=== PATIENT | female | born 1945 | race Caucasian/White ===

== ENCOUNTER 2016-06-27 11:39 | Emergency (ER) | payer MEDICARE ==
[~2016-06-27] VITALS: Ht 162.6 cm; Wt 72.0 kg
[~2016-06-27 11:39] MED LIST: ASPI81 PO; ENAL20TA PO; EXEM25TA PO; HYDR-2768 PO; LEVO50TA51 PO; OYST500T77 PO; TAB-TAB PO
[2016-06-27 11:42] VITALS: BP 221/92; PULSE 92; RESP 24; TEMP 97.5; O2SAT 97
[2016-06-27] MEDS ORDERED: SODIUM CHLOR 0.9% 1000 ML INJ 1,000 ML IV SCH (12:03)
[2016-06-27 12:09] VITALS: O2SAT 98
[2016-06-27] MEDS ORDERED: FAMOTIDINE 20 MG/2 ML VIAL IV PUSH ONE (12:15)
[2016-06-27] MEDS ORDERED: ONDANSETRON HCL 4 MG/2 ML VIAL IVP ONE (12:15)
[2016-06-27] MEDS ORDERED: DICYCLOMINE HCL 20 MG/2 ML VIAL IM ONE (12:15)
[2016-06-27] MEDS ORDERED: PANTOPRAZOLE SODIUM 40 MG VIAL IVP ONE (12:15)
--- NOTE | 2016-06-27 12:41 | PD ---
HPI Chief Complaint: Abdominal Pain Time Seen by Provider: 12:38 Travel History International Travel<30 days: No Contact w/Intl Traveler<30days: No Traveled to known affect area: No History of Present Illness HPI 70-year-old female that presents to the ED for evaluation of severe epigastric pain. Patient states that she had an episode around 6:00 this morning which woke her up from her sleep. Per patient he was severe causing nausea and some diarrhea. Per patient the pain is missed on the epigastric area. Per patient the pain is 8 out of 10. The patient his symptoms go away after she took some medications that she made herself burp. She denies ever having any surgeries to the abdomen. Per patient she felt somewhat better after an hour and she was able to go to eat breakfast when no issues. Per patient she went to work with no issues and then during work she developed the pain again. Per patient this time the pain seems to be more severe and now it's almost 10 out of 10. She states that it radiates to the back. She denies any lower abdominal pain. She denies any vaginal discharge. She states that she has liquidy stool but no blood. She denies taking any blood thinners. Denies any chest pain or shortness of breath. 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) Glaucoma: No Hepatitis: No Hiatal Hernia: No Hypertension: Yes Respiratory: No Thyroid Disease: Yes (HYPOTHYROIDISM) Tetanus Vaccination: > 5 Years Influenza Vaccination: Yes Menopausal: Yes : 2 Para: 2 Past Surgical History Abdominal Surgery: No Body Medical Devices: BREAST IMPLANTS Cardiac Surgery: No Ear Surgery: No Endocrine Surgery: No Eye Surgery: No Genitourinary Surgery: No Gynecologic Surgery: No Oral Surgery: Yes (BIOPSY ON PRE CANCEROUS LESION ON TONGUE) Pacemaker: No Thoracic Surgery: Yes (MASTECTOMY RIGHT BREAST, MAMMOPLASTY) Other Surgery: Yes (BREAST IMPLANTS 1996) Social History Alcohol Use: No Tobacco Use: No Substance Use: No Allergies-Medications (Allergen,Severity, Reaction): Coded Allergies: Penicillin (Verified Allergy, Mild, 03/17/13) Codeine (Verified Adverse Reaction, Severe, NAUSEA/VOMITING, 03/17/13) Morphine (Verified Adverse Reaction, Severe, NAUSEA,VOMITING, 03/17/13) Oxycontin (Verified Adverse Reaction, Severe, NAUSEA/VOMITING, 03/17/13) Reported Meds & Prescriptions Reported Meds & Active Scripts Active Reported Exemestane 25 Mg Tab 25 Mg PO DAILY Levoxyl (Levothyroxine Sodium) 50 Mcg Tab 50 Mcg PO DAILY Enalapril Maleate 20 Mg Tab 20 Mg PO DAILY Multivitamin (Multivitamins) 1 Tab Tab 1 Tab PO DAILY Calcium 500 Mg Tab 500 Mg PO BID Aspirin 81 Mg Tab 81 Mg PO DAILY Hctz (Hydrochlorothiazide) 25 Mg Tab 25 Mg PO DAILY Review of Systems Except as stated in HPI: all other systems reviewed are Neg Physical Exam Narrative GENERAL: SKIN: Warm and dry. HEAD: Atraumatic. Normocephalic. EYES: Pupils equal and round. No scleral icterus. No injection or drainage. ENT: No nasal bleeding or discharge. Mucous membranes pink and moist. NECK: Trachea midline. No JVD. CARDIOVASCULAR: Regular rate and rhythm. RESPIRATORY: No accessory muscle use. Clear to auscultation. Breath sounds equal bilaterally. GASTROINTESTINAL: Abdomen soft, patient has reproducible pain on the epigastric area with deep palpation, nondistended. Hepatic and splenic margins not palpable. MUSCULOSKELETAL: Extremities without clubbing, cyanosis, or edema. No obvious deformities. Full range of motion of the upper and lower extremities bilaterally. 2+ pulses bilaterally. NEUROLOGICAL: Awake and alert. No obvious cranial nerve deficits. Motor grossly within normal limits. Five out of 5 muscle strength in the arms and legs. Normal speech. PSYCHIATRIC: Appropriate mood and affect; insight and judgment normal. Data Data Last Documented VS Vital Signs Date Time Temp Pulse Resp B/P Pulse Ox O2 Delivery O2 Flow Rate FiO2 06/27/16 12:09 98 Room Air 06/27/16 12:09 18 06/27/16 11:42 97.5 92 221/92 Orders Complete Blood Count With Diff (06/27/16 12:03) Comprehensive Metabolic Panel (06/27/16 12:03) Lipase (06/27/16 12:03) Lactic Acid (06/27/16 12:03) Prothrombin Time / Inr (Pt) (06/27/16 12:03) Act Partial Throm Time (Ptt) (06/27/16 12:03) Urinalysis - C+S If Indicated (06/27/16 12:03) Ct Abd/Pel W Iv Contrast(Rout) (06/27/16 12:03) Iv Access Insert/Monitor (06/27/16 12:03) Ecg Monitoring (06/27/16 12:03) Oximetry (06/27/16 12:03) NPO (06/27/16 12:03) Ondansetron Inj (Zofran Inj) (06/27/16 12:15) Pantoprazole Inj (Protonix Inj) (06/27/16 12:15) Sodium Chlor 0.9% 1000 Ml Inj (Ns 1000 M (06/27/16 12:03) Electrocardiogram (06/27/16 12:03) Famotidine Inj (Pepcid Inj) (06/27/16 12:15) Dicyclomine Inj (Bentyl Inj) (06/27/16 12:15) Troponin I (06/27/16 12:20) Iohexol 350 Inj (Omnipaque 350 Inj) (06/27/16 14:16) Labs Laboratory Tests Test 06/27/16 12:20 White Blood Count 7.1 TH/MM3 Red Blood Count 4.97 MIL/MM3 Hemoglobin 14.3 GM/DL Hematocrit 42.9 % Mean Corpuscular Volume 86.3 FL Mean Corpuscular Hemoglobin 28.7 PG Mean Corpuscular Hemoglobin 33.3 % Concent Red Cell Distribution Width 14.2 % Platelet Count 240 TH/MM3 Mean Platelet Volume 9.3 FL Neutrophils (%) (Auto) 72.3 % Lymphocytes (%) (Auto) 20.3 % Monocytes (%) (Auto) 6.6 % Eosinophils (%) (Auto) 0.4 % Basophils (%) (Auto) 0.4 % Neutrophils # (Auto) 5.2 TH/MM3 Lymphocytes # (Auto) 1.4 TH/MM3 Monocytes # (Auto) 0.5 TH/MM3 Eosinophils # (Auto) 0.0 TH/MM3 Basophils # (Auto) 0.0 TH/MM3 CBC Comment DIFF FINAL Differential Comment Prothrombin Time 11.2 SEC Prothromb Time International 1.0 RATIO Ratio Activated Partial 24.2 SEC Thromboplast Time Urine Color YELLOW Urine Turbidity CLEAR Urine pH 5.5 Urine Specific [place] 1.017 Urine Protein TRACE mg/dL Urine Glucose (UA) NEG mg/dL Urine Ketones NEG mg/dL Urine Occult Blood TRACE Urine Nitrite NEG Urine Bilirubin NEG Urine Urobilinogen LESS THAN 2.0 MG/DL Urine Leukocyte Esterase TRACE Urine RBC 3 /hpf Urine WBC 1 /hpf Urine Squamous Epithelial <1 /hpf Cells Urine Mucus FEW /lpf Microscopic Urinalysis Comment CULT NOT INDICATED Sodium Level 140 MEQ/L Potassium Level 4.2 MEQ/L Chloride Level 103 MEQ/L Carbon Dioxide Level 27.3 MEQ/L Anion Gap 10 MEQ/L Blood Urea Nitrogen 15 MG/DL Creatinine 0.93 MG/DL Estimat Glomerular Filtration 59 ML/MIN Rate Random Glucose 102 MG/DL Lactic Acid Level 1.8 mmol/L Calcium Level 9.2 MG/DL Total Bilirubin 0.8 MG/DL Aspartate Amino Transf 57 U/L (AST/SGOT) Alanine Aminotransferase 41 U/L (ALT/SGPT) Alkaline Phosphatase 67 U/L Troponin I LESS THAN 0.02 NG/ML Total Protein 7.7 GM/DL Albumin 3.9 GM/DL Lipase 111 U/L [place] Medical Decision Making Medical Screen Exam Complete: Yes Emergency Medical Condition: Yes Medical Record Reviewed: Yes Interpretation(s) CBC & BMP Diagram 06/27/16 12:20 Last Impressions Abdomen/Pelvis CT 06/27/16 1203 Signed Impressions: Service Date/Time: June 14:13 - CONCLUSION: 1. Nonspecific mild gastric antral wall thickening. 2. Colonic diverticula but no evidence of acute diverticulitis. 3. No other acute findings in the abdomen or pelvis. Orlando Carlos MD LFTs and Lipase WNl UA negative Differential Diagnosis Chest pain versus ACS versus obstruction versus cholecystitis versus cholelithiasis versus gastritis versus gastroenteritis versus perforation versus PUD versus pancreatitis Narrative Course 70-year-old female that presents to the ED for evaluation of epigastric abdominal pain. Patient was properly examined and was found to have signs and symptoms consistent appears to be epigastric abdominal pain. Labs and imaging ordered. Patient was given IV fluids and medications. Patient specifically requests no narcotics because they make her feel "funny". He was given Bentyl and Zofran as well as IV fluids and Protonix and Pepcid. Labs and imaging were essentially unremarkable. From history and physical this appears to be bad gastritis. Patient was reassured. Patient did have some relief from her symptoms. Patient was given prescription for Protonix and Zantac to use as needed. Close follow-up with PCP. See ED worsening symptoms. My attending Dr. Coelho evaluated the patient with me and agrees with plan. Patient was made aware of all findings. She understands reasons to come back. Diagnosis Primary Impression: Gastritis Qualified Code: K29.00 - Acute gastritis without hemorrhage, unspecified gastritis type Patient Instructions: General Instructions Additional Instructions: Take medications as prescribed. Follow with PCP. Liquid diet until better. See ED for worsening symptoms. Med/Other Pt SpecificInfo: Prescription(s) given Disposition: DISCHARGE HOME Condition: Stable Tod Moss Jun 27, 2016 12:41
[2016-06-27 12:57] LABS: AUTOMATED NEUTROPHIL # 5.2 TH/MM3 (1.8-7.7); BASOPHIL % 0.4 % (0.0-2.0); EOSINOPHIL % 0.4 % (0.0-4.0); HEMATOCRIT 42.9 % (35.0-46.0); HEMO FLAGS DIFF FINAL; LYMPH % 20.3 % (9.0-44.0); LYMPHOCYTE # 1.4 TH/MM3 (1.0-4.8); MEAN CELL VOLUME 86.3 FL (80.0-100.0); MEAN CORPUSCULAR HEMOGLOBIN 28.7 PG (27.0-34.0); MEAN CORPUSCULAR HGB CONC 33.3 % (32.0-36.0); MONO % 6.6 % (0.0-8.0); NEUT % 72.3 % (16.0-70.0); PLATELET COUNT 240 TH/MM3 (150-450); RED BLOOD COUNT 4.97 MIL/MM3 (4.00-5.30); RED CELL DISTRIBUTION WIDTH 14.2 % (11.6-17.2); WHITE BLOOD COUNT 7.1 TH/MM3 (4.0-11.0)
[2016-06-27 13:00] LABS: BLOOD, URINE TRACE (NEG); GLUCOSE,URINE NEG (NEG); KETONE, URINE NEG (NEG); MUCUS URINE FEW /lpf (OCC); NITRITE,URINE NEG (NEG); PH, URINE 5.5 (5.0-8.5); SQUAMOUS EPITHELIAL CELL URINE <1 /hpf (0-5); URINE COLOR YELLOW (YELLW/STRAW)
[2016-06-27 13:01] LABS: COMMENT (UR) CULT NOT INDICATED; CULTURE IF INDICATED CULT NOT INDICATED
[2016-06-27 13:06] LABS: ANION GAP 10 MEQ/L (5-15); AST (GOT) 57 U/L (15-37); BICARBONATE 27.3 MEQ/L (21.0-32.0); BLOOD UREA NITROGEN 15 MG/DL (7-18); CHLORIDE 103 MEQ/L (98-107); GLOMERULAR FILTRATION RATE 59 ML/MIN (>89); POTASSIUM 4.2 MEQ/L (3.5-5.1); SODIUM (NA) 140 MEQ/L (136-145)
[2016-06-27 13:08] LABS: APTT (PATIENT) 24.2 SEC (24.3-30.1); PROTHROMBIN TIME - PATIENT 11.2 SEC (9.8-11.6)
[2016-06-27 13:14] LABS: ALKALINE PHOSPHATASE 67 U/L (45-117); ALT (GPT) 41 U/L (10-53); TOTAL BILIRUBIN ADULT 0.8 MG/DL (0.2-1.0)
[2016-06-27] MEDS ORDERED: IOHEXOL 350 MG/ML 10 ML VIAL (for RAD DIAG) IV ONE (14:16)
--- NOTE | 2016-06-27 14:56 | RADRPT ---
EXAM DATE/TIME: 06/27/2016 14:13 [facility] COMPARISON: No previous studies available for comparison. INDICATIONS : Epigastric pain with nausea. IV CONTRAST: 95 cc Omnipaque 350 (iohexol) IV ORAL CONTRAST: No oral contrast ingested. RADIATION DOSE: 16.49 CTDIvol (mGy) MEDICAL HISTORY : Carcinoma, breast. Hypertension. SURGICAL HISTORY : Mastectomy, right. ENCOUNTER: Initial ACUITY: 1 day PAIN SCALE: 4/10 LOCATION: Bilateral upper quadrant TECHNIQUE: Volumetric scanning of the abdomen and pelvis was performed. Using automated exposure control and ad justment of the mA and/or kV according to patient size, radiation dose was kept as low as reasonably achievable to obtain optimal diagnostic quality images. FINDINGS: LOWER LUNGS: The visualized lower lungs are clear. LIVER: Homogeneous density without lesion. There is no dilation of the biliary tree. No calcified gallston es. SPLEEN: Normal size without lesion. PANCREAS: Within normal limits. KIDNEYS: Normal in size and shape. There is no mass, stone or hydronephrosis. ADRENAL GLANDS: Within normal limits. VASCULAR: Diffuse aortic calcification. Aortic diameter within normal limits. BOWEL/MESENTERY: Scattered colonic diverticula. No evidence of acute diverticulitis. Nonspecific mild gastric antral w all thickening. No evidence of bowel dilatation. No free air or free fluid. Appendix not identified. ABDOMINAL WALL: Within normal limits. RETROPERITONEUM: There is no lymphadenopathy. BLADDER: No wall thickening or mass. REPRODUCTIVE: Within normal limits. INGUINAL: There is no lymphadenopathy or hernia. MUSCULOSKELETAL: Within normal limits for patient age. CONCLUSION: 1. Nonspecific mild gastric antral wall thickening. 2. Colonic diverticula but no evidence of acute diverticulitis. 3. No other acute findings in the abdomen or pelvis. Orlando Carlos MD on June 27, 2016 at 14:46 Board Certified Radiologist. This report was verified electronically.
[2016-06-27] MEDS ORDERED: PROT40TA PO ×2 (15:13→15:57)
[2016-06-27] MEDS ORDERED: ZANTTAB9 PO ×2 (15:13→15:57)
--- NOTE | 2016-06-27 15:14 | PD ---
Physical Exam Date Seen by Provider: Jun 27, 2016 Time Seen by Provider: 14:30 Narrative I, Dr. Lee, have reviewed the advance practice practitioner's documentation and am in agreement, met with the patient face to face, made the diagnosis, and the medical decision making was done by me. *My assessment and Findings: Patient seen and evaluated with PA. Please see PA note for further details. Here with epigastric abdominal pain. Mildly tender in the epigastrium. EKG shows NSR, no ST elevation or depression, and no arrhythmias. No significant T-wave inversions. Laboratory Tests Test 06/27/16 12:20 Neutrophils (%) (Auto) 72.3 % (16.0-70.0) Activated Partial 24.2 SEC Thromboplast Time (24.3-30.1) Urine Occult Blood TRACE (NEG) Urine Leukocyte Esterase TRACE (NEG) Urine Mucus FEW /lpf (OCC) Estimat Glomerular Filtration 59 ML/MIN (>89) Rate Aspartate Amino Transf 57 U/L (15-37) (AST/SGOT) Troponin I LESS THAN 0.02 NG/ML (0.02-0.05) Last 24 hours Impressions Abdomen/Pelvis CT 06/27/16 1203 Signed Impressions: Service Date/Time: June 14:13 - CONCLUSION: 1. Nonspecific mild gastric antral wall thickening. 2. Colonic diverticula but no evidence of acute diverticulitis. 3. No other acute findings in the abdomen or pelvis. Orlando Carlos MD CAT scan did not reveal any signs of acute intra-abdominal processes. Lab work is essentially unremarkable. Symptoms are consistent with a gastritis. At this point, my plan would be to treat her for gastritis and have her follow-up with primary care physician. Return for any worsening in symptoms as needed. The plan has been discussed with the patient and she states understanding. Data Data Last Documented VS Vital Signs Date Time Temp Pulse Resp B/P Pulse Ox O2 Delivery O2 Flow Rate FiO2 06/27/16 12:09 98 Room Air 06/27/16 12:09 18 06/27/16 11:42 97.5 92 221/92 Orders Complete Blood Count With Diff (06/27/16 12:03) Comprehensive Metabolic Panel (06/27/16 12:03) Lipase (06/27/16 12:03) Lactic Acid (06/27/16 12:03) Prothrombin Time / Inr (Pt) (06/27/16 12:03) Act Partial Throm Time (Ptt) (06/27/16 12:03) Urinalysis - C+S If Indicated (06/27/16 12:03) Ct Abd/Pel W Iv Contrast(Rout) (06/27/16 12:03) Iv Access Insert/Monitor (06/27/16 12:03) Ecg Monitoring (06/27/16 12:03) Oximetry (06/27/16 12:03) NPO (06/27/16 12:03) Ondansetron Inj (Zofran Inj) (06/27/16 12:15) Pantoprazole Inj (Protonix Inj) (06/27/16 12:15) Sodium Chlor 0.9% 1000 Ml Inj (Ns 1000 M (06/27/16 12:03) Electrocardiogram (06/27/16 12:03) Famotidine Inj (Pepcid Inj) (06/27/16 12:15) Dicyclomine Inj (Bentyl Inj) (06/27/16 12:15) Troponin I (06/27/16 12:20) Iohexol 350 Inj (Omnipaque 350 Inj) (06/27/16 14:16) Labs Laboratory Tests Test 06/27/16 12:20 White Blood Count 7.1 TH/MM3 Red Blood Count 4.97 MIL/MM3 Hemoglobin 14.3 GM/DL Hematocrit 42.9 % Mean Corpuscular Volume 86.3 FL Mean Corpuscular Hemoglobin 28.7 PG Mean Corpuscular Hemoglobin 33.3 % Concent Red Cell Distribution Width 14.2 % Platelet Count 240 TH/MM3 Mean Platelet Volume 9.3 FL Neutrophils (%) (Auto) 72.3 % Lymphocytes (%) (Auto) 20.3 % Monocytes (%) (Auto) 6.6 % Eosinophils (%) (Auto) 0.4 % Basophils (%) (Auto) 0.4 % Neutrophils # (Auto) 5.2 TH/MM3 Lymphocytes # (Auto) 1.4 TH/MM3 Monocytes # (Auto) 0.5 TH/MM3 Eosinophils # (Auto) 0.0 TH/MM3 Basophils # (Auto) 0.0 TH/MM3 CBC Comment DIFF FINAL Differential Comment Prothrombin Time 11.2 SEC Prothromb Time International 1.0 RATIO Ratio Activated Partial 24.2 SEC Thromboplast Time Urine Color YELLOW Urine Turbidity CLEAR Urine pH 5.5 Urine Specific [place] 1.017 Urine Protein TRACE mg/dL Urine Glucose (UA) NEG mg/dL Urine Ketones NEG mg/dL Urine Occult Blood TRACE Urine Nitrite NEG Urine Bilirubin NEG Urine Urobilinogen LESS THAN 2.0 MG/DL Urine Leukocyte Esterase TRACE Urine RBC 3 /hpf Urine WBC 1 /hpf Urine Squamous Epithelial <1 /hpf Cells Urine Mucus FEW /lpf Microscopic Urinalysis Comment CULT NOT INDICATED Sodium Level 140 MEQ/L Potassium Level 4.2 MEQ/L Chloride Level 103 MEQ/L Carbon Dioxide Level 27.3 MEQ/L Anion Gap 10 MEQ/L Blood Urea Nitrogen 15 MG/DL Creatinine 0.93 MG/DL Estimat Glomerular Filtration 59 ML/MIN Rate Random Glucose 102 MG/DL Lactic Acid Level 1.8 mmol/L Calcium Level 9.2 MG/DL Total Bilirubin 0.8 MG/DL Aspartate Amino Transf 57 U/L (AST/SGOT) Alanine Aminotransferase 41 U/L (ALT/SGPT) Alkaline Phosphatase 67 U/L Troponin I LESS THAN 0.02 NG/ML Total Protein 7.7 GM/DL Albumin 3.9 GM/DL Lipase 111 U/L [facility] Medical Record Reviewed: Yes Supervised Visit with HEMANTH: Yes Diagnosis Primary Impression: Gastritis Disposition: 01 DISCHARGE HOME Condition: Stable Edwin Lee MD Jun 27, 2016 15:14
[2016-06-27] MEDS ORDERED: ASPI1TAB69 PO (15:26)
[2016-06-27] MEDS ORDERED: CALTTAB PO (15:26)
[2016-06-27] MEDS ORDERED: LEVO50TA4 PO (15:26)
[2016-06-27] MEDS ORDERED: ENAL20TA PO (15:26)
[2016-06-27] MEDS ORDERED: HYDR25TA5 PO (15:26)
[2016-06-27 16:07] VITALS: BP 178/89; PULSE 86; RESP 24; TEMP 97.5; O2SAT 97
--- NOTE | 2016-06-28 14:47 | EKG ---
Date Performed: 06/27/2016 Time Performed: 12:21:00 PTAGE: 70 years EKG: Sinus rhythm NONSPECIFIC SEPTAL T WAVE CHANGES Compared to the PREVIOUS TRACING the nonspecific septal T wave changes are slightly more pronounced but otherwise no significant serial change PREVIOUS TRACIN03/15/2013 12.54 DOCTOR: Filomena Santamaria Interpretating Date/Time 06/28/2016 14:45:48
== END 2016-06-27 16:08 | disposition home or self-care (01) ==
LOC: NEPE 11:39
DX: K29.70 Gastritis, unspecified, without bleeding (principal)
CPT/HCPCS: 74177; 80053; 81001; 83605; 83690; 84484; 85025; 85610; 85730; 93005; 96361; 96372; 96374; 96375; 99284; C9113; J0500; J2405; J7030; Q9967